=== PATIENT | male | born 1995 | race Asian ===

== ENCOUNTER 2018-12-06 16:08 | Emergency (ER) | payer MEDICAID, OTHER ==
[~2018-12-06] VITALS: Ht 167.6 cm; Wt 77.3 kg
[~2018-12-06 16:08] MED LIST: OLAN10TA6 PO
[2018-12-06 19:56] VITALS: BP 141/79
== END 2018-12-06 20:06 | disposition home or self-care (01) ==
LOC: EMS 16:09
DX: R07.89 Other chest pain (principal); F17.210 Nicotine dependence, cigarettes, uncomplicated; Z79.899 Other long term (current) drug therapy; F15.90 Other stimulant use, unspecified, uncomplicated; F14.90 Cocaine use, unspecified, uncomplicated; F12.90 Cannabis use, unspecified, uncomplicated; F11.90 Opioid use, unspecified, uncomplicated
CPT/HCPCS: 93005

== ENCOUNTER 2020-04-15 21:50 | Emergency (ER) | payer OTHER ==
[~2020-04-15] VITALS: Ht 170.2 cm; Wt 102.3 kg
[2020-04-16] MEDS ORDERED: SODIUM CHLORIDE 0.9% 1,000 ML IV ONE (00:15)
[2020-04-16] MEDS ORDERED: ACETAMINOPHEN 500 MG TABLET PO ONE (00:15)
[2020-04-16 01:28] LABS: BASOPHILS % (AUTO) 0.5 % (0.0-2.0); EOSINOPHILS % (AUTO) 6.2 % (1.0-6.0); HEMATOCRIT 46.8 % (41-53); HEMOGLOBIN 15.7 g/dL (13.5-17.5); LYMPHOCYTES # (AUTO) 2.1 K/uL (1.0-4.8); LYMPHOCYTES % (AUTO) 20.4 % (22.0-44.0); MEAN CORPUSCULAR HEMOGLOBIN 28.4 pg (26.0-34.0); MEAN CORPUSCULAR HGB CONC 33.5 G/dL (31.0-37.0); MEAN CORPUSCULAR VOLUME 85 fL (80-100); MONOCYTES # (AUTO) 0.6 K/uL (0.1-1.0); MONOCYTES % (AUTO) 5.7 % (2.0-9.0); NEUTROPHILS % (AUTO) 67.2 % (40.0-70.0); PLATELET COUNT (AUTO) 261 K/uL (150-450); RED BLOOD CELL COUNT(AUTO) 5.53 MIL/uL (4.50-5.90); RED CELL DISTRIBUTION WIDTH 13.8 % (11.5-14.5)
[2020-04-16 01:36] LABS: ANION GAP 9 mmol/L (8-16); CALCIUM, TOTAL 9.4 mg/dL (8.8-10.5); CARBON DIOXIDE 29 mmol/L (22-29); CHLORIDE 95 mmol/L (98-107); CREATININE 1.11 mg/dL (0.60-1.30); GLOMERULAR FILTR. RATE CALC > 60 mL/min (>60); GLUCOSE,RANDOM 264 mg/dL (70-110); POTASSIUM 3.8 mmol/L (3.5-5.1); SODIUM SERUM 133 mmol/L (136-145); UREA NITROGEN, BLOOD 13 mg/dL (7-18)
[2020-04-16 02:26] LABS: APPEARANCE,URINE CLEAR (CLEAR); BILIRUBIN,URINE NEGATIVE (NEGATIVE); GLUCOSE, URINE (UA) >=1000 mg/dL (NEGATIVE); KETONES,URINE TRACE mg/dL (NEGATIVE); LEUKOCYTE ESTERASE ,URINE NEGATIVE (NEGATIVE); NITRATE,URINE NEGATIVE (NEGATIVE); OCCULT BLOOD,URINE SMALL (NEGATIVE); PROTEIN,URINE POS 1+ (NEGATIVE)
[2020-04-16 02:29] LABS: AMPHET/METH SCREEN,URINE NEGATIVE (NEGATIVE); BARBITURATE SCREEN, URINE NEGATIVE (NEGATIVE); BENZODIAZEPINES SCREEN,URINE NEGATIVE (NEGATIVE); CANNABINOID SCREEN,URINE NEGATIVE (NEGATIVE); COCAINE SCREEN,URINE NEGATIVE (NEGATIVE); METHADONE SCREEN, URINE NEGATIVE (NEGATIVE); OPIATE SCREEN,URINE NEGATIVE (NEGATIVE)
[2020-04-16 02:50] LABS: PHENCYCLIDINE SCREEN,URINE NEGATIVE (NEGATIVE)
[2020-04-16 02:53] LABS: LACTIC ACID 2.2 mmol/L (0.4-2.0)
[2020-04-16 03:29] LABS: BACTERIA,URINE None Seen /HPF (None Seen); RBC,URINE 0-2 /HPF (0-2); SQUAMOUS EPITHELIAL CELL,UR Few /LPF (None Seen); WBC,URINE None Seen /HPF (0-5); YEAST,URINE None Seen /HPF (None Seen)
[2020-04-16 05:07] VITALS: BP 156/106
== END 2020-04-16 05:09 | disposition home or self-care (01) ==
LOC: EMS 21:50
DX: R05 Cough (principal); R07.9 Chest pain, unspecified; R73.9 Hyperglycemia, unspecified; F17.210 Nicotine dependence, cigarettes, uncomplicated; F12.90 Cannabis use, unspecified, uncomplicated; Z03.818 Encounter for observation for suspected exposure to other biological agents ruled out
CPT/HCPCS: 36415; 71045; 80048; 80307; 81001; 83605; 85025; 87040; 93005; 99285; J7030; U0003

== ENCOUNTER 2021-10-31 08:44 | Emergency (ER) | payer OTHER ==
[~2021-10-31] VITALS: Ht 167.6 cm; Wt 100.0 kg
[~2021-10-31 08:44] MED LIST changes: +OLAN10TA26 PO; -OLAN10TA6 PO
[2021-10-31] MEDS ORDERED: METF-1211 PO (09:13)
[2021-10-31] MEDS ORDERED: ATOR10TA84 PO (09:15)
[2021-10-31] MEDS ORDERED: RISP1TAB89 PO (09:22)
[2021-10-31] MEDS ORDERED: PALI39DI IM (09:25)
[2021-10-31 09:36] LABS: BASOPHILS % (AUTO) 0.4 % (0.0-2.0); EOSINOPHILS % (AUTO) 1.1 % (1.0-6.0); HEMATOCRIT 45.1 % (41-53); HEMOGLOBIN 15.2 g/dL (13.5-17.5); LYMPHOCYTES # (AUTO) 1.3 K/uL (1.0-4.8); LYMPHOCYTES % (AUTO) 8.5 % (22.0-44.0); MEAN CORPUSCULAR HEMOGLOBIN 28.4 pg (26.0-34.0); MEAN CORPUSCULAR HGB CONC 33.8 G/dL (31.0-37.0); MEAN CORPUSCULAR VOLUME 84 fL (80-100); MONOCYTES # (AUTO) 1.1 K/uL (0.1-1.0); MONOCYTES % (AUTO) 6.9 % (2.0-9.0); NEUTROPHILS # (AUTO) 12.6 K/uL (1.8-7.7); NEUTROPHILS % (AUTO) 83.1 % (40.0-70.0); PLATELET COUNT (AUTO) 330 K/uL (150-450); RED BLOOD CELL COUNT(AUTO) 5.36 MIL/uL (4.50-5.90); RED CELL DISTRIBUTION WIDTH 13.4 % (11.5-14.5)
[2021-10-31 09:56] LABS: ANION GAP 10 mmol/L (8-16); CALCIUM, TOTAL 9.5 mg/dL (8.8-10.5); CARBON DIOXIDE 29 mmol/L (22-29); CHLORIDE 98 mmol/L (98-107); CREATININE 1.06 mg/dL (0.60-1.30); GLOMERULAR FILTR. RATE CALC > 60 mL/min (>60); GLUCOSE,RANDOM 123 mg/dL (70-110); POTASSIUM 3.9 mmol/L (3.5-5.1); SODIUM SERUM 137 mmol/L (136-145); UREA NITROGEN, BLOOD 10 mg/dL (7-18)
[2021-10-31 09:57] LABS: COVID AG,FIA SOURCE NASOPHARYNGEAL
[2021-10-31 10:02] LABS: ALANINE AMINOTRANSFERASE 45 U/L (12-78); ALKALINE PHOSPHATASE 88 U/L (46-116); ASPARTATE AMINOTRANSFERASE 27 U/L (15-37); BILIRUBIN,TOTAL 0.9 mg/dL (0.1-1.0); TOTAL PROTEIN, SERUM 8.8 g/dL (6.4-8.2)
[2021-10-31 10:07] LABS: AMPHET/METH SCREEN,URINE NEGATIVE (NEGATIVE); BARBITURATE SCREEN, URINE NEGATIVE (NEGATIVE); BENZODIAZEPINES SCREEN,URINE NEGATIVE (NEGATIVE); CANNABINOID SCREEN,URINE NEGATIVE (NEGATIVE); COCAINE SCREEN,URINE NEGATIVE (NEGATIVE); METHADONE SCREEN, URINE NEGATIVE (NEGATIVE); OPIATE SCREEN,URINE NEGATIVE (NEGATIVE)
[2021-10-31 10:08] LABS: PHENCYCLIDINE SCREEN,URINE NEGATIVE (NEGATIVE)
[2021-10-31] MEDS ORDERED: DiphenhydrAMINE HCL 50 MG CAPSULE PO ONE (11:00)
[2021-10-31] MEDS ORDERED: LORazepam 2 MG TABLET PO ONE (11:00)
[2021-10-31] MEDS ORDERED: HALOPERIDOL 5 MG TABLET PO ONE (11:00)
[2021-10-31 14:45] VITALS: BP 136/84
[2021-11-02 00:21] LABS: CHOL/HDL RATIO 2.6 (4.2-7.3); CHOLESTEROL 112 mg/dL (131-200); HDL CHOLESTEROL 43 mg/dL (40-60); LDL CHOL (CALC.) 59 mg/dL (0-130); TRIGLYCERIDES 52 mg/dL (15-150)
== END 2021-10-31 18:30 | disposition left against medical advice (07) ==
LOC: EMS 08:44
DX: F20.9 Schizophrenia, unspecified (principal); F31.9 Bipolar disorder, unspecified; I10 Essential (primary) hypertension; E11.9 Type 2 diabetes mellitus without complications; E78.00 Pure hypercholesterolemia, unspecified; F12.90 Cannabis use, unspecified, uncomplicated; F17.210 Nicotine dependence, cigarettes, uncomplicated; Z79.899 Other long term (current) drug therapy; Z20.822 Contact with and (suspected) exposure to COVID-19
CPT/HCPCS: 36415; 80053; 80061; 80307; 82962; 85025; 87426; 99284; G0480

== ENCOUNTER 2021-10-31 20:00 | Inpatient (IN) | payer MEDICAID, OTHER ==
[~2021-10-31] VITALS: Ht 175.3 cm; Wt 93.2 kg
[~2021-10-31 20:00] MED LIST changes: +ATOR10TA84 PO; +METF-1211 PO; +PALI39DI IM; +RISP1TAB89 PO
[2021-10-31] MEDS ORDERED: AMOX TR/POT CLAV 875 MG/125 MG TABLET PO ONE (23:00)
[2021-11-01 05:20] LABS: COVID AG,FIA SOURCE NASOPHARYNGEAL
[2021-11-01] MEDS ORDERED: ZOLPIDEM TARTRATE 10 MG TABLET PO PRN (07:45)
[2021-11-01 13:51] LABS: APPEARANCE,URINE CLEAR (CLEAR); BILIRUBIN,URINE NEGATIVE (NEGATIVE); GLUCOSE, URINE (UA) NEGATIVE (NEGATIVE); KETONES,URINE NEGATIVE (NEGATIVE); LEUKOCYTE ESTERASE ,URINE NEGATIVE (NEGATIVE); NITRATE,URINE NEGATIVE (NEGATIVE); OCCULT BLOOD,URINE MODERATE (NEGATIVE); PROTEIN,URINE TRACE (NEGATIVE)
[2021-11-01 13:52] LABS: AMPHET/METH SCREEN,URINE NEGATIVE (NEGATIVE); BARBITURATE SCREEN, URINE NEGATIVE (NEGATIVE); BENZODIAZEPINES SCREEN,URINE NEGATIVE (NEGATIVE); CANNABINOID SCREEN,URINE NEGATIVE (NEGATIVE); COCAINE SCREEN,URINE NEGATIVE (NEGATIVE); METHADONE SCREEN, URINE NEGATIVE (NEGATIVE); OPIATE SCREEN,URINE NEGATIVE (NEGATIVE)
[2021-11-01 14:03] LABS: BACTERIA,URINE None Seen /HPF (None Seen); WBC,URINE None Seen /HPF (0-5)
[2021-11-01 14:04] LABS: PHENCYCLIDINE SCREEN,URINE NEGATIVE (NEGATIVE)
[2021-11-01] MEDS: LORazepam 2 MG TABLET PO PRN (19:25)
[2021-11-01] MEDS: HALOPERIDOL 5 MG TABLET PO PRN (19:25)
[2021-11-02] MEDS: LORazepam 2 MG TABLET PO PRN (05:34)
[2021-11-02 14:31] LABS: GLUCOSE,POINT OF CARE 93 MG/DL (70-110)
[2021-11-02 16:50] VITALS: BP 147/82
[2021-11-03 10:29] VITALS: BP 116/72
[2021-11-03] MEDS: HALOPERIDOL 5 MG TABLET PO PRN (16:09)
[2021-11-03] MEDS: LORazepam 2 MG TABLET PO PRN (16:09)
[2021-11-03 17:26] VITALS: BP 145/98
[2021-11-03] MEDS: RisperiDONE 3 MG TABLET PO SCH (19:30)
[2021-11-03] MEDS ORDERED: OLANZapine 10 MG RAPDIS TABLET PO SCH (21:00)
[2021-11-03] MEDS ORDERED: MAG HYDROX/AL HYDROX/SIMETH ES 30 ML SUSPENSION UDCUP PO PRN (22:45)
[2021-11-03] MEDS ORDERED: DOCUSATE SODIUM 100 MG CAPSULE PO PRN (22:45)
[2021-11-03] MEDS ORDERED: ACETAMINOPHEN 325 MG TABLET PO PRN (22:45)
[2021-11-03] MEDS ORDERED: ONDANSETRON HCL 4 MG TABLET PO PRN (22:45)
[2021-11-03] MEDS ORDERED: ALBUTEROL SULFATE HFA 90 MCG/PUFF 8 GM INHALER IH PRN (22:45)
[2021-11-03] MEDS ORDERED: OMEPRAZOLE 20 MG CAPSULE PO PRN (22:45)
[2021-11-03] MEDS ORDERED: BACITRACIN 28 GM OINTMENT TP PRN (22:45)
[2021-11-03] MEDS ORDERED: DEXTROSE 50%-WATER 25 GM/50 ML SYRINGE IVP PRN (22:45)
[2021-11-03] MEDS ORDERED: BENZOCAINE/MENTHOL LOZENGE PO PRN (22:45)
[2021-11-03] MEDS ORDERED: MAGNESIUM HYDROXIDE SUSPENSION 30 ML UDCUP PO PRN (22:45)
[2021-11-03] MEDS ORDERED: CloNIDine HCL 0.1 MG TABLET PO PRN (22:45)
[2021-11-03] MEDS ORDERED: PETROLATUM,WHITE 28 GM JELLY TP PRN (22:45)
[2021-11-03] MEDS ORDERED: IBUPROFEN 600 MG TABLET PO PRN (22:45)
[2021-11-03] MEDS ORDERED: LOPERAMIDE HCL 2 MG CAPSULE PO PRN (22:45)
[2021-11-04 06:31] LABS: GLUCOMETER DEV NAME(LOC) 3E.C; GLUCOSE,POINT OF CARE 102 MG/DL (70-110)
[2021-11-04] MEDS: INSULIN LISPRO 100 UNITS/ML SQ PRN ×2 (06:32→06:45)
[2021-11-04] MEDS: MetFORMIN HCL 500 MG TABLET PO SCH ×2 (06:45→17:53)
[2021-11-04] MEDS: RisperiDONE 3 MG TABLET PO SCH ×2 (08:30→15:54)
[2021-11-04] MEDS: ATORVASTATIN CALCIUM 10 MG TABLET PO SCH (08:31)
[2021-11-04 09:25] VITALS: BP 137/86
[2021-11-04 13:51] LABS: GLUCOMETER DEV NAME(LOC) 3E.C; GLUCOSE,POINT OF CARE 89 MG/DL (70-110)
[2021-11-04 16:00] VITALS: BP 100/61
[2021-11-04 16:05] LABS: GLUCOMETER DEV NAME(LOC) 3E.C; GLUCOSE,POINT OF CARE 87 MG/DL (70-110)
[2021-11-04] MEDS: LORazepam 2 MG TABLET PO PRN (19:34)
[2021-11-04 21:31] LABS: GLUCOMETER DEV NAME(LOC) 3E.C; GLUCOSE,POINT OF CARE 76 MG/DL (70-110)
[2021-11-05 06:31] LABS: GLUCOMETER DEV NAME(LOC) 3E.C; GLUCOSE,POINT OF CARE 86 MG/DL (70-110)
[2021-11-05] MEDS: MetFORMIN HCL 500 MG TABLET PO SCH ×2 (06:53→17:14)
[2021-11-05 08:44] VITALS: BP 138/86
[2021-11-05] MEDS: RisperiDONE 3 MG TABLET PO SCH ×2 (10:44→16:44)
[2021-11-05] MEDS: ATORVASTATIN CALCIUM 10 MG TABLET PO SCH (10:44)
[2021-11-05 12:16] LABS: GLUCOMETER DEV NAME(LOC) 3E.C; GLUCOSE,POINT OF CARE 89 MG/DL (70-110)
[2021-11-05 16:00] VITALS: BP 114/60
[2021-11-05 16:26] LABS: GLUCOMETER DEV NAME(LOC) 3E.C; GLUCOSE,POINT OF CARE 103 MG/DL (70-110)
[2021-11-05 16:57] VITALS: BP 114/60
[2021-11-05 21:06] LABS: GLUCOMETER DEV NAME(LOC) 3E.C; GLUCOSE,POINT OF CARE 89 MG/DL (70-110)
[2021-11-06 06:46] LABS: GLUCOMETER DEV NAME(LOC) 3E.C; GLUCOSE,POINT OF CARE 86 MG/DL (70-110)
[2021-11-06] MEDS: MetFORMIN HCL 500 MG TABLET PO SCH (06:57)
[2021-11-06] MEDS: INSULIN LISPRO 100 UNITS/ML SQ PRN ×2 (06:58→13:03)
[2021-11-06] MEDS: RisperiDONE 3 MG TABLET PO SCH (08:35)
[2021-11-06] MEDS: ATORVASTATIN CALCIUM 10 MG TABLET PO SCH (08:36)
[2021-11-06 08:47] VITALS: BP 143/75
[2021-11-06 11:31] LABS: GLUCOMETER DEV NAME(LOC) 3E.C; GLUCOSE,POINT OF CARE 92 MG/DL (70-110)
[2021-11-06] MEDS ORDERED: RISP3TAB35 PO (12:14)
[2021-11-26] MEDS ORDERED: PALIPERIDONE PALMITATE 234 MG/1.5 ML SYRINGE IM SCH (09:00)
== END 2021-11-06 16:37 | disposition home or self-care (01) | DRG 750 ==
LOC: EMS 20:02 → 3EC 11-02 15:52
PROVIDERS: ADMIT Psychiatry & Neurology Psychiatry; ATTEND Psychiatry & Neurology Psychiatry
DX: F20.9 Schizophrenia, unspecified (principal); E11.9 Type 2 diabetes mellitus without complications; E78.00 Pure hypercholesterolemia, unspecified; E78.5 Hyperlipidemia, unspecified; F32.A Depression, unspecified; F41.9 Anxiety disorder, unspecified; G47.00 Insomnia, unspecified; I10 Essential (primary) hypertension; K21.9 Gastro-esophageal reflux disease without esophagitis; K59.00 Constipation, unspecified; F17.210 Nicotine dependence, cigarettes, uncomplicated; S60.512A Abrasion of left hand, initial encounter; X58.XXXA Exposure to other specified factors, initial encounter; Z20.822 Contact with and (suspected) exposure to COVID-19; Y93.89 Activity, other specified; Z79.899 Other long term (current) drug therapy; Y92.89 Other specified places as the place of occurrence of the external cause; Y99.8 Other external cause status
CPT/HCPCS: 81001; 82962; 99285